=== PATIENT | female | born 1975 | race Caucasian/White ===

== ENCOUNTER 2020-07-09 10:30 | Inpatient (IN) | payer OTHER ==
[2020-07-09 12:41] VITALS: BMI 19.0
[2020-07-09] MEDS ORDERED: NALOXONE HCL 0.4 MG/ML VIAL IM PRN (16:14)
[2020-07-09] MEDS ORDERED: IBUPROFEN 400 MG TABLET (FP) PO PRN (16:14)
[2020-07-09] MEDS ORDERED: guaiFENesin 200 MG/10 ML 10 ML UNIT-DOSE CUPS PO PRN (16:14)
[2020-07-09] MEDS ORDERED: P-EPHED 60MG/TRIPROLIDI 2.5MG TABLET PO PRN (16:14)
[2020-07-09] MEDS ORDERED: NICOTINE POLACRILEX 2 MG GUM BC PRN (16:14)
[2020-07-09] MEDS ORDERED: MAGNESIUM HYDROX 2400MG/30ML ORAL SUSPENSION 30 ML CUP PO PRN (16:14)
[2020-07-09] MEDS ORDERED: ACETAMINOPHEN 325 MG TABLET (FP) PO PRN (16:14)
[2020-07-09] MEDS ORDERED: MAGNESIUM CITRATE 300 ML BOTTLE PO PRN (16:14)
[2020-07-09] MEDS ORDERED: LOPERAMIDE HCL 2 MG CAPSULE PO PRN (16:14)
[2020-07-09] MEDS ORDERED: MAG HYDROX/AL HYDROX/SIMETH 30 ML UNIT-DOSE CUP PO PRN (16:14)
[2020-07-09] MEDS ORDERED: METHADONE HCL 10 MG TABLET PO ONE (17:15)
[2020-07-09] MEDS ORDERED: METHADONE 40 MG, METHADONE 30 MG PO ONE (17:30)
[2020-07-09] MEDS ORDERED: METHADONE HCL 10 MG TABLET ONE (17:53)
[2020-07-09] MEDS ORDERED: METHADONE HCL 40 MG DISPERSABLE TABLET ONE (17:54)
[2020-07-09] MEDS ORDERED: TUBERCULIN PPD 5 TU/0.1ML VIAL ID ONE (17:54)
[2020-07-09] MEDS: PRENATAL VITAMINS W/ FOLIC ACID TABLET (FP) PO SCH (17:59)
[2020-07-09] MEDS: NICOTINE 14 MG/24 HOURS TOPICAL PATCH TD SCH (18:02)
[2020-07-09] MEDS: hydrOXYzine PAMOATE 25 MG CAPSULE (FP) PO SCH ×2 (19:47→23:22)
[2020-07-09] MEDS: THIAMINE HCL 100 MG TABLET (FP) PO SCH (23:22)
[2020-07-09] MEDS: MELATONIN 5 MG TABLETS PO SCH (23:22)
[2020-07-10] MEDS: hydrOXYzine PAMOATE 25 MG CAPSULE (FP) PO SCH ×5 (06:26→21:09)
[2020-07-10] MEDS: METHADONE HCL 40 MG DISPERSABLE TABLET PO SCH (06:26)
[2020-07-10 10:18] LABS: HEMATOCRIT 35.5 % (32.4-45.2); HEMOGLOBIN 12.5 GM/dL (10.7-15.3); MCH 30.4 pg (25.7-33.7); MCHC 35.1 g/dl (32.0-36.0); MEAN CELL VOLUME 86.8 fl (80-96); MEAN PLT VOLUME 9.5 fl (7.5-11.1); PLATELET COUNT 160 K/MM3 (134-434); RBC 4.09 M/mm3 (3.60-5.2); RDW 13.3 % (11.6-15.6); WHITE BLOOD COUNT 3.7 K/mm3 (4.0-10.0)
[2020-07-10 10:22] LABS: ALBUMIN 3.7 g/dl (3.4-5.0); BLOOD UREA NITROGEN 19.6 mg/dL (7-18); CALCIUM 9.6 mg/dL (8.5-10.1)
[2020-07-10 10:26] LABS: BILIRUBIN,TOTAL 0.3 mg/dL (0.2-1); CREATININE 0.9 mg/dL (0.55-1.3)
[2020-07-10 10:28] LABS: TOT PROT 7.8 g/dl (6.4-8.2)
[2020-07-10] MEDS: NICOTINE 14 MG/24 HOURS TOPICAL PATCH TD SCH (10:44)
[2020-07-10] MEDS: PRENATAL VITAMINS W/ FOLIC ACID TABLET (FP) PO SCH (10:44)
[2020-07-10] MEDS: BACITRACIN 0.9 GM PACKET TP SCH ×2 (13:15→21:09)
[2020-07-10] MEDS: THIAMINE HCL 100 MG TABLET (FP) PO SCH (21:09)
[2020-07-10] MEDS: MELATONIN 5 MG TABLETS PO SCH (21:10)
[2020-07-11] MEDS: METHADONE HCL 40 MG DISPERSABLE TABLET PO SCH (06:25)
[2020-07-11] MEDS: hydrOXYzine PAMOATE 25 MG CAPSULE (FP) PO SCH ×5 (06:25→21:30)
[2020-07-11] MEDS: PRENATAL VITAMINS W/ FOLIC ACID TABLET (FP) PO SCH (09:41)
[2020-07-11] MEDS: BACITRACIN 0.9 GM PACKET TP SCH ×2 (09:41→21:30)
[2020-07-11] MEDS: NICOTINE 14 MG/24 HOURS TOPICAL PATCH TD SCH (09:41)
[2020-07-11] MEDS: MELATONIN 5 MG TABLETS PO SCH (21:29)
[2020-07-11] MEDS: THIAMINE HCL 100 MG TABLET (FP) PO SCH (21:30)
[2020-07-12] MEDS: METHADONE HCL 40 MG DISPERSABLE TABLET PO SCH (06:16)
[2020-07-12] MEDS: hydrOXYzine PAMOATE 25 MG CAPSULE (FP) PO SCH ×5 (06:17→21:21)
[2020-07-12] MEDS: NICOTINE 14 MG/24 HOURS TOPICAL PATCH TD SCH (09:36)
[2020-07-12] MEDS: PRENATAL VITAMINS W/ FOLIC ACID TABLET (FP) PO SCH (09:36)
[2020-07-12] MEDS: BACITRACIN 0.9 GM PACKET TP SCH ×2 (09:37→21:21)
[2020-07-12 19:50] LABS: EPI CELLS 6 /uL (0-25.1); HYALINE CASTS 0 /uL (0-3.1); URINE APPEARANCE CLEAR; URINE BACTERIA 119 /uL (0-1359); URINE BILIRUBIN NEGATIVE (NEGATIVE); URINE COLOR YELLOW; URINE GLUCOSE (UA) NEGATIVE (NEGATIVE); URINE KETONE NEGATIVE (NEGATIVE); URINE LEUK ESTERASE NEGATIVE (NEGATIVE); URINE NITRITE NEGATIVE (NEGATIVE); URINE PROTEIN NEGATIVE (NEGATIVE); URINE RBC 65 /uL (0-23.9); URINE UROBILINOGEN 0.2 mg/dL (0.2-1.0); URINE WBC 7 /uL (0-25.8)
[2020-07-12] MEDS: MELATONIN 5 MG TABLETS PO SCH (21:21)
[2020-07-12] MEDS: THIAMINE HCL 100 MG TABLET (FP) PO SCH (21:22)
[2020-07-13] MEDS: METHADONE HCL 40 MG DISPERSABLE TABLET PO SCH (06:12)
[2020-07-13] MEDS: hydrOXYzine PAMOATE 25 MG CAPSULE (FP) PO SCH ×5 (06:12→21:44)
[2020-07-13 10:06] LABS: SARS-CoV-2 NAA Not Detected (Not Detected)
[2020-07-13] MEDS: BACITRACIN 0.9 GM PACKET TP SCH ×2 (10:08→21:44)
[2020-07-13] MEDS: NICOTINE 14 MG/24 HOURS TOPICAL PATCH TD SCH (10:09)
[2020-07-13] MEDS: PRENATAL VITAMINS W/ FOLIC ACID TABLET (FP) PO SCH (10:09)
[2020-07-13] MEDS: MELATONIN 5 MG TABLETS PO SCH (21:44)
[2020-07-13] MEDS: THIAMINE HCL 100 MG TABLET (FP) PO SCH (21:44)
[2020-07-14] MEDS: hydrOXYzine PAMOATE 25 MG CAPSULE (FP) PO SCH ×5 (06:05→21:33)
[2020-07-14] MEDS: METHADONE HCL 40 MG DISPERSABLE TABLET PO SCH (06:05)
[2020-07-14] MEDS: BACITRACIN 0.9 GM PACKET TP SCH ×2 (10:07→21:33)
[2020-07-14] MEDS: NICOTINE 14 MG/24 HOURS TOPICAL PATCH TD SCH (10:07)
[2020-07-14] MEDS: PRENATAL VITAMINS W/ FOLIC ACID TABLET (FP) PO SCH (10:07)
[2020-07-14] MEDS: MELATONIN 5 MG TABLETS PO SCH (21:33)
[2020-07-14] MEDS: THIAMINE HCL 100 MG TABLET (FP) PO SCH (21:33)
[2020-07-15] MEDS: METHADONE HCL 40 MG DISPERSABLE TABLET PO SCH (06:17)
[2020-07-15] MEDS: hydrOXYzine PAMOATE 25 MG CAPSULE (FP) PO SCH ×5 (06:17→21:36)
[2020-07-15] MEDS: NICOTINE 14 MG/24 HOURS TOPICAL PATCH TD SCH (09:59)
[2020-07-15] MEDS: BACITRACIN 0.9 GM PACKET TP SCH ×2 (09:59→21:36)
[2020-07-15] MEDS: PRENATAL VITAMINS W/ FOLIC ACID TABLET (FP) PO SCH (09:59)
[2020-07-15] MEDS: MELATONIN 5 MG TABLETS PO SCH (21:35)
[2020-07-15] MEDS: THIAMINE HCL 100 MG TABLET (FP) PO SCH (21:36)
[2020-07-16] MEDS: hydrOXYzine PAMOATE 25 MG CAPSULE (FP) PO SCH ×3 (06:29→13:13)
[2020-07-16] MEDS: METHADONE HCL 40 MG DISPERSABLE TABLET PO SCH (06:29)
[2020-07-16] MEDS: BACITRACIN 0.9 GM PACKET TP SCH ×2 (09:53→21:32)
[2020-07-16] MEDS: PRENATAL VITAMINS W/ FOLIC ACID TABLET (FP) PO SCH (09:53)
[2020-07-16] MEDS: NICOTINE 14 MG/24 HOURS TOPICAL PATCH TD SCH (09:53)
[2020-07-16] MEDS: MELATONIN 5 MG TABLETS PO SCH (21:32)
[2020-07-16] MEDS: hydrOXYzine PAMOATE 25 MG CAPSULE (FP) PO PRN (21:32)
[2020-07-16] MEDS: THIAMINE HCL 100 MG TABLET (FP) PO SCH (21:32)
[2020-07-17] MEDS: hydrOXYzine PAMOATE 25 MG CAPSULE (FP) PO PRN ×2 (06:06→21:30)
[2020-07-17] MEDS: METHADONE HCL 40 MG DISPERSABLE TABLET PO SCH (06:06)
[2020-07-17] MEDS: BACITRACIN 0.9 GM PACKET TP SCH ×2 (09:49→21:29)
[2020-07-17] MEDS: PRENATAL VITAMINS W/ FOLIC ACID TABLET (FP) PO SCH (09:50)
[2020-07-17] MEDS: NICOTINE 14 MG/24 HOURS TOPICAL PATCH TD SCH (09:50)
[2020-07-17] MEDS: MELATONIN 5 MG TABLETS PO SCH (21:29)
[2020-07-17] MEDS: THIAMINE HCL 100 MG TABLET (FP) PO SCH (21:29)
[2020-07-18] MEDS: METHADONE HCL 40 MG DISPERSABLE TABLET PO SCH (06:24)
[2020-07-18] MEDS: hydrOXYzine PAMOATE 25 MG CAPSULE (FP) PO PRN ×3 (06:25→21:33)
[2020-07-18] MEDS: BACITRACIN 0.9 GM PACKET TP SCH ×2 (09:46→21:33)
[2020-07-18] MEDS: NICOTINE 14 MG/24 HOURS TOPICAL PATCH TD SCH (09:46)
[2020-07-18] MEDS: PRENATAL VITAMINS W/ FOLIC ACID TABLET (FP) PO SCH (09:46)
[2020-07-18] MEDS: MELATONIN 5 MG TABLETS PO SCH (21:32)
[2020-07-18] MEDS: THIAMINE HCL 100 MG TABLET (FP) PO SCH (21:33)
[2020-07-19] MEDS: METHADONE HCL 40 MG DISPERSABLE TABLET PO SCH (06:22)
[2020-07-19] MEDS: hydrOXYzine PAMOATE 25 MG CAPSULE (FP) PO PRN ×3 (06:23→21:18)
[2020-07-19] MEDS: PRENATAL VITAMINS W/ FOLIC ACID TABLET (FP) PO SCH (10:08)
[2020-07-19] MEDS: NICOTINE 14 MG/24 HOURS TOPICAL PATCH TD SCH (10:08)
[2020-07-19] MEDS: BACITRACIN 0.9 GM PACKET TP SCH ×2 (10:08→21:19)
[2020-07-19] MEDS: THIAMINE HCL 100 MG TABLET (FP) PO SCH (21:18)
[2020-07-19] MEDS: MELATONIN 5 MG TABLETS PO SCH (21:19)
[2020-07-20] MEDS: hydrOXYzine PAMOATE 25 MG CAPSULE (FP) PO PRN ×3 (07:28→21:24)
[2020-07-20] MEDS: METHADONE HCL 40 MG DISPERSABLE TABLET PO SCH (07:28)
[2020-07-20] MEDS: PRENATAL VITAMINS W/ FOLIC ACID TABLET (FP) PO SCH (10:31)
[2020-07-20] MEDS: BACITRACIN 0.9 GM PACKET TP SCH ×2 (10:32→21:24)
[2020-07-20] MEDS: NICOTINE 14 MG/24 HOURS TOPICAL PATCH TD SCH (10:32)
[2020-07-20] MEDS: THIAMINE HCL 100 MG TABLET (FP) PO SCH (21:24)
[2020-07-20] MEDS: MELATONIN 5 MG TABLETS PO SCH (21:24)
[2020-07-21] MEDS: hydrOXYzine PAMOATE 25 MG CAPSULE (FP) PO PRN ×3 (06:18→22:14)
[2020-07-21] MEDS: METHADONE HCL 40 MG DISPERSABLE TABLET PO SCH (06:19)
[2020-07-21] MEDS: BACITRACIN 0.9 GM PACKET TP SCH ×2 (10:19→22:15)
[2020-07-21] MEDS: NICOTINE 14 MG/24 HOURS TOPICAL PATCH TD SCH (10:19)
[2020-07-21] MEDS: PRENATAL VITAMINS W/ FOLIC ACID TABLET (FP) PO SCH (10:19)
[2020-07-21] MEDS: THIAMINE HCL 100 MG TABLET (FP) PO SCH (22:13)
[2020-07-21] MEDS: MELATONIN 5 MG TABLETS PO SCH (22:13)
[2020-07-22] MEDS: METHADONE HCL 40 MG DISPERSABLE TABLET PO SCH (06:23)
[2020-07-22] MEDS: hydrOXYzine PAMOATE 25 MG CAPSULE (FP) PO PRN ×4 (06:24→21:22)
[2020-07-22] MEDS: BACITRACIN 0.9 GM PACKET TP SCH ×2 (10:35→21:23)
[2020-07-22] MEDS: PRENATAL VITAMINS W/ FOLIC ACID TABLET (FP) PO SCH (10:35)
[2020-07-22] MEDS: NICOTINE 14 MG/24 HOURS TOPICAL PATCH TD SCH (10:35)
[2020-07-22] MEDS: THIAMINE HCL 100 MG TABLET (FP) PO SCH (21:22)
[2020-07-22] MEDS: MELATONIN 5 MG TABLETS PO SCH (21:22)
[2020-07-23] MEDS: hydrOXYzine PAMOATE 25 MG CAPSULE (FP) PO PRN ×4 (06:11→21:59)
[2020-07-23] MEDS: METHADONE HCL 40 MG DISPERSABLE TABLET PO SCH (06:11)
[2020-07-23] MEDS: PRENATAL VITAMINS W/ FOLIC ACID TABLET (FP) PO SCH (10:21)
[2020-07-23] MEDS: BACITRACIN 0.9 GM PACKET TP SCH ×2 (10:22→21:59)
[2020-07-23] MEDS: NICOTINE 14 MG/24 HOURS TOPICAL PATCH TD SCH (10:22)
[2020-07-23] MEDS: THIAMINE HCL 100 MG TABLET (FP) PO SCH (21:59)
[2020-07-23] MEDS: MELATONIN 5 MG TABLETS PO SCH (21:59)
[2020-07-24] MEDS: METHADONE HCL 40 MG DISPERSABLE TABLET PO SCH (06:07)
[2020-07-24] MEDS: hydrOXYzine PAMOATE 25 MG CAPSULE (FP) PO PRN ×3 (06:07→21:42)
[2020-07-24] MEDS: PRENATAL VITAMINS W/ FOLIC ACID TABLET (FP) PO SCH (10:10)
[2020-07-24] MEDS: BACITRACIN 0.9 GM PACKET TP SCH ×2 (10:11→22:01)
[2020-07-24] MEDS: NICOTINE 14 MG/24 HOURS TOPICAL PATCH TD SCH (10:11)
[2020-07-24] MEDS: MELATONIN 5 MG TABLETS PO SCH (21:42)
[2020-07-24] MEDS: THIAMINE HCL 100 MG TABLET (FP) PO SCH (21:42)
[2020-07-25] MEDS: hydrOXYzine PAMOATE 25 MG CAPSULE (FP) PO PRN ×3 (06:05→21:31)
[2020-07-25] MEDS: METHADONE HCL 40 MG DISPERSABLE TABLET PO SCH (06:05)
[2020-07-25] MEDS: BACITRACIN 0.9 GM PACKET TP SCH ×2 (09:50→21:31)
[2020-07-25] MEDS: PRENATAL VITAMINS W/ FOLIC ACID TABLET (FP) PO SCH (09:50)
[2020-07-25] MEDS: NICOTINE 14 MG/24 HOURS TOPICAL PATCH TD SCH (09:51)
[2020-07-25] MEDS: THIAMINE HCL 100 MG TABLET (FP) PO SCH (21:31)
[2020-07-25] MEDS: MELATONIN 5 MG TABLETS PO SCH (21:31)
[2020-07-25] MEDS ORDERED: PT OWN MED DRAWER 7, Y5N ONE (21:55)
[2020-07-26] MEDS: hydrOXYzine PAMOATE 25 MG CAPSULE (FP) PO PRN ×3 (06:11→21:25)
[2020-07-26] MEDS: METHADONE HCL 40 MG DISPERSABLE TABLET PO SCH (06:11)
[2020-07-26] MEDS: PRENATAL VITAMINS W/ FOLIC ACID TABLET (FP) PO SCH (10:00)
[2020-07-26] MEDS: NICOTINE 14 MG/24 HOURS TOPICAL PATCH TD SCH (10:00)
[2020-07-26] MEDS: BACITRACIN 0.9 GM PACKET TP SCH ×2 (10:00→21:25)
[2020-07-26] MEDS: THIAMINE HCL 100 MG TABLET (FP) PO SCH (21:25)
[2020-07-26] MEDS: MELATONIN 5 MG TABLETS PO SCH (21:25)
[2020-07-27] MEDS: METHADONE HCL 40 MG DISPERSABLE TABLET PO SCH (06:17)
[2020-07-27] MEDS: NICOTINE 14 MG/24 HOURS TOPICAL PATCH TD SCH (10:03)
[2020-07-27] MEDS: PRENATAL VITAMINS W/ FOLIC ACID TABLET (FP) PO SCH (10:03)
[2020-07-27] MEDS: hydrOXYzine PAMOATE 25 MG CAPSULE (FP) PO PRN ×3 (10:03→21:28)
[2020-07-27] MEDS: BACITRACIN 0.9 GM PACKET TP SCH ×2 (10:03→21:31)
[2020-07-27] MEDS: MELATONIN 5 MG TABLETS PO SCH (21:28)
[2020-07-27] MEDS: THIAMINE HCL 100 MG TABLET (FP) PO SCH (21:28)
[2020-07-28] MEDS: METHADONE HCL 40 MG DISPERSABLE TABLET PO SCH (06:24)
[2020-07-28] MEDS: hydrOXYzine PAMOATE 25 MG CAPSULE (FP) PO PRN ×2 (06:24→10:00)
[2020-07-28 07:19] VITALS: BP 115/65; PULSE 51; TEMP 97.6
[2020-07-28] MEDS: PRENATAL VITAMINS W/ FOLIC ACID TABLET (FP) PO SCH (10:00)
[2020-07-28] MEDS: BACITRACIN 0.9 GM PACKET TP SCH (10:00)
[2020-07-28] MEDS: NICOTINE 14 MG/24 HOURS TOPICAL PATCH TD SCH (10:00)
== END 2020-07-28 10:15 | disposition home or self-care (01) | DRG 772 ==
LOC: YASAS 10:30 → Y3N 15:53 → Y5N 16:26
PROVIDERS: ADMIT Allergy & Immunology; ATTEND Allergy & Immunology
PROC: HZ42ZZZ Group Counseling for Substance Abuse Treatment, Cognitive-Behavioral (ICD-10-PCS; principal; 2020-07-09)
DX: F10.20 Alcohol dependence, uncomplicated (principal); F11.20 Opioid dependence, uncomplicated; F14.20 Cocaine dependence, uncomplicated; F17.210 Nicotine dependence, cigarettes, uncomplicated
CPT/HCPCS: 36415; 80053; 81003; 81025; 85027; 86780; 93005; 93010; C9803; U0003; U0005

== ENCOUNTER 2020-11-11 12:16 | Inpatient (IN) | payer OTHER ==
[2020-11-11 12:54] VITALS: BMI 20.8
[2020-11-11] MEDS ORDERED: MENTHOL/PHENOL 1 EACH UD MM PRN (13:55)
[2020-11-11] MEDS ORDERED: IBUPROFEN 400 MG TABLET (FP) PO PRN (13:55)
[2020-11-11] MEDS ORDERED: MAG HYDROX/AL HYDROX/SIMETH 30 ML UNIT-DOSE CUP PO PRN (13:55)
[2020-11-11] MEDS ORDERED: ACETAMINOPHEN 325 MG TABLET (FP) PO PRN ×2 (13:55)
[2020-11-11] MEDS ORDERED: METHOCARBAMOL 500 MG TABLET PO PRN (13:55)
[2020-11-11] MEDS ORDERED: MAGNESIUM HYDROX 2400MG/30ML ORAL SUSPENSION 30 ML CUP PO PRN (13:55)
[2020-11-11] MEDS ORDERED: NICOTINE 10 MG CARTRIDGE (INHALER) IH PRN (13:55)
[2020-11-11] MEDS ORDERED: MAGNESIUM CITRATE 300 ML BOTTLE PO PRN (13:55)
[2020-11-11] MEDS ORDERED: ONDANSETRON *ODT* 4 MG TABLET SL PRN (13:55)
[2020-11-11] MEDS ORDERED: BISMUTH SUBSALICYLATE 262 MG/15 ML BTL PO PRN (13:55)
[2020-11-11] MEDS: hydrOXYzine PAMOATE 25 MG CAPSULE (FP) PO SCH ×3 (15:40→22:51)
[2020-11-11] MEDS: PRENATAL VITAMINS W/ FOLIC ACID TABLET (FP) PO SCH (15:40)
[2020-11-11 15:52] LABS: HEMATOCRIT 37.1 % (32.4-45.2); HEMOGLOBIN 12.8 GM/dL (10.7-15.3); MCH 31.5 pg (25.7-33.7); MCHC 34.4 g/dl (32.0-36.0); MEAN CELL VOLUME 91.5 fl (80-96); MEAN PLT VOLUME 8.7 fl (7.5-11.1); PLATELET COUNT 183 10^3/uL (134-434); RBC 4.06 M/mm3 (3.60-5.2); RDW 14.3 % (11.6-15.6); WHITE BLOOD COUNT 3.3 K/mm3 (4.0-10.0)
[2020-11-11 16:02] LABS: ALBUMIN 3.9 g/dl (3.4-5.0); BLOOD UREA NITROGEN 19.4 mg/dL (7-18); CALCIUM 8.6 mg/dL (8.5-10.1)
[2020-11-11 16:06] LABS: BILIRUBIN,TOTAL 0.4 mg/dL (0.2-1); TOT PROT 7.7 g/dl (6.4-8.2)
[2020-11-11] MEDS ORDERED: MELATONIN 5 MG TABLETS PO SCH (22:00)
[2020-11-11] MEDS ORDERED: THIAMINE HCL 100 MG TABLET (FP) PO SCH (22:00)
[2020-11-12] MEDS ORDERED: methaDONE HCL 40 MG DISPERSABLE TABLET PO SCH (06:00)
[2020-11-12] MEDS: hydrOXYzine PAMOATE 25 MG CAPSULE (FP) PO SCH (06:12)
[2020-11-12 08:48] VITALS: BP 108/63; PULSE 50; TEMP 96.9
[2020-11-12] MEDS ORDERED: hydrOXYzine PAMOATE 25 MG CAPSULE (FP) PO PRN (09:16)
[2020-11-12] MEDS: PRENATAL VITAMINS W/ FOLIC ACID TABLET (FP) PO SCH (10:30)
== END 2020-11-12 12:07 | disposition other institution (70) | DRG 773 ==
LOC: YASAS 12:16 → Y3N 14:01
PROVIDERS: ADMIT Allergy & Immunology; ATTEND Allergy & Immunology
PROC: HZ2ZZZZ Detoxification Services for Substance Abuse Treatment (ICD-10-PCS; principal; 2020-11-11)
DX: F10.230 Alcohol dependence with withdrawal, uncomplicated (principal); F11.20 Opioid dependence, uncomplicated; F14.20 Cocaine dependence, uncomplicated; F12.20 Cannabis dependence, uncomplicated; F17.210 Nicotine dependence, cigarettes, uncomplicated; F19.24 Other psychoactive substance dependence with psychoactive substance-induced mood disorder
CPT/HCPCS: 36415; 80053; 81025; 85027; 86780; C9803; U0003; U0005

== ENCOUNTER 2020-11-12 12:17 | Inpatient (IN) | payer OTHER ==
[2020-11-12] MEDS ORDERED: NICOTINE 10 MG CARTRIDGE (INHALER) IH PRN (13:25)
[2020-11-12] MEDS ORDERED: P-EPHED 60MG/TRIPROLIDI 2.5MG TABLET PO PRN (13:25)
[2020-11-12] MEDS ORDERED: MAG HYDROX/AL HYDROX/SIMETH 30 ML UNIT-DOSE CUP PO PRN (13:25)
[2020-11-12] MEDS ORDERED: ACETAMINOPHEN 325 MG TABLET (FP) PO PRN (13:25)
[2020-11-12] MEDS ORDERED: IBUPROFEN 400 MG TABLET (FP) PO PRN (13:25)
[2020-11-12] MEDS ORDERED: MENTHOL/PHENOL 1 EACH UD MM PRN (13:25)
[2020-11-12] MEDS ORDERED: LOPERAMIDE HCL 2 MG CAPSULE PO PRN (13:25)
[2020-11-12] MEDS ORDERED: guaiFENesin 200 MG/10 ML 10 ML UNIT-DOSE CUPS PO PRN (13:25)
[2020-11-12] MEDS ORDERED: MAGNESIUM CITRATE 300 ML BOTTLE PO PRN (13:25)
[2020-11-12] MEDS ORDERED: MAGNESIUM HYDROX 2400MG/30ML ORAL SUSPENSION 30 ML CUP PO PRN (13:25)
[2020-11-12] MEDS: THIAMINE HCL 100 MG TABLET (FP) PO SCH (21:15)
[2020-11-12] MEDS ORDERED: MELATONIN 5 MG TABLETS PO SCH (22:00)
[2020-11-13] MEDS: methaDONE HCL 40 MG DISPERSABLE TABLET PO SCH (06:19)
[2020-11-13] MEDS: PRENATAL VITAMINS W/ FOLIC ACID TABLET (FP) PO SCH (10:27)
[2020-11-13] MEDS: hydrOXYzine PAMOATE 25 MG CAPSULE (FP) PO PRN ×2 (18:16→21:39)
[2020-11-13] MEDS: SUVOREXANT 10 MG TABLET PO PRN (21:38)
[2020-11-13] MEDS: THIAMINE HCL 100 MG TABLET (FP) PO SCH (21:38)
[2020-11-14] MEDS: methaDONE HCL 40 MG DISPERSABLE TABLET PO SCH (06:37)
[2020-11-14] MEDS: hydrOXYzine PAMOATE 25 MG CAPSULE (FP) PO PRN ×3 (06:38→21:17)
[2020-11-14] MEDS: PRENATAL VITAMINS W/ FOLIC ACID TABLET (FP) PO SCH (09:51)
[2020-11-14] MEDS: SUVOREXANT 10 MG TABLET PO PRN (21:16)
[2020-11-14] MEDS: THIAMINE HCL 100 MG TABLET (FP) PO SCH (21:17)
[2020-11-15] MEDS: methaDONE HCL 40 MG DISPERSABLE TABLET PO SCH (06:14)
[2020-11-15] MEDS: hydrOXYzine PAMOATE 25 MG CAPSULE (FP) PO PRN ×3 (06:15→22:18)
[2020-11-15] MEDS: PRENATAL VITAMINS W/ FOLIC ACID TABLET (FP) PO SCH (10:00)
[2020-11-15] MEDS ORDERED: SUVOREXANT 10 MG TABLET PO PRN (22:00)
[2020-11-15] MEDS ORDERED: SUVOREXANT 15 MG TABLET PO PRN (22:08)
[2020-11-15] MEDS: THIAMINE HCL 100 MG TABLET (FP) PO SCH (22:18)
[2020-11-16] MEDS: methaDONE HCL 40 MG DISPERSABLE TABLET PO SCH (06:16)
[2020-11-16] MEDS: PRENATAL VITAMINS W/ FOLIC ACID TABLET (FP) PO SCH (09:48)
[2020-11-16] MEDS: hydrOXYzine PAMOATE 25 MG CAPSULE (FP) PO PRN ×2 (09:48→21:16)
[2020-11-16] MEDS: THIAMINE HCL 100 MG TABLET (FP) PO SCH (21:15)
[2020-11-16] MEDS: SUVOREXANT 20 MG TABLET PO PRN (21:16)
[2020-11-17] MEDS: methaDONE HCL 40 MG DISPERSABLE TABLET PO SCH (06:06)
[2020-11-17] MEDS: hydrOXYzine PAMOATE 25 MG CAPSULE (FP) PO PRN ×2 (09:57→21:24)
[2020-11-17] MEDS: PRENATAL VITAMINS W/ FOLIC ACID TABLET (FP) PO SCH (09:57)
[2020-11-17] MEDS: SUVOREXANT 20 MG TABLET PO PRN (21:24)
[2020-11-17] MEDS: THIAMINE HCL 100 MG TABLET (FP) PO SCH (21:24)
[2020-11-18] MEDS: methaDONE HCL 40 MG DISPERSABLE TABLET PO SCH (06:05)
[2020-11-18] MEDS: hydrOXYzine PAMOATE 25 MG CAPSULE (FP) PO PRN ×2 (10:21→21:22)
[2020-11-18] MEDS: PRENATAL VITAMINS W/ FOLIC ACID TABLET (FP) PO SCH (10:21)
[2020-11-18] MEDS: THIAMINE HCL 100 MG TABLET (FP) PO SCH (21:21)
[2020-11-18] MEDS: SUVOREXANT 10 MG TABLET PO PRN (21:21)
[2020-11-18] MEDS: traZODone HCL 100 MG TABLET (FP) PO SCH (21:22)
[2020-11-19] MEDS: methaDONE HCL 40 MG DISPERSABLE TABLET PO SCH (06:30)
[2020-11-19] MEDS: hydrOXYzine PAMOATE 25 MG CAPSULE (FP) PO PRN ×2 (10:00→21:50)
[2020-11-19] MEDS: PRENATAL VITAMINS W/ FOLIC ACID TABLET (FP) PO SCH (10:00)
[2020-11-19] MEDS: SUVOREXANT 10 MG TABLET PO PRN (21:49)
[2020-11-19] MEDS: THIAMINE HCL 100 MG TABLET (FP) PO SCH (21:49)
[2020-11-19] MEDS: traZODone HCL 100 MG TABLET (FP) PO SCH (21:49)
[2020-11-20] MEDS: methaDONE HCL 40 MG DISPERSABLE TABLET PO SCH (06:21)
[2020-11-20] MEDS: PRENATAL VITAMINS W/ FOLIC ACID TABLET (FP) PO SCH (10:08)
[2020-11-20] MEDS: hydrOXYzine PAMOATE 25 MG CAPSULE (FP) PO PRN ×2 (10:08→21:27)
[2020-11-20] MEDS: SUVOREXANT 10 MG TABLET PO PRN (21:26)
[2020-11-20] MEDS: traZODone HCL 100 MG TABLET (FP) PO SCH (21:27)
[2020-11-20] MEDS: THIAMINE HCL 100 MG TABLET (FP) PO SCH (21:27)
[2020-11-21] MEDS: methaDONE HCL 40 MG DISPERSABLE TABLET PO SCH (06:24)
[2020-11-21] MEDS: PRENATAL VITAMINS W/ FOLIC ACID TABLET (FP) PO SCH (10:00)
[2020-11-21] MEDS: hydrOXYzine PAMOATE 25 MG CAPSULE (FP) PO PRN ×2 (17:26→21:03)
[2020-11-21] MEDS: THIAMINE HCL 100 MG TABLET (FP) PO SCH (21:03)
[2020-11-21] MEDS: SUVOREXANT 10 MG TABLET PO PRN (21:03)
[2020-11-21] MEDS: traZODone HCL 100 MG TABLET (FP) PO SCH (21:03)
[2020-11-22] MEDS: methaDONE HCL 40 MG DISPERSABLE TABLET PO SCH (06:15)
[2020-11-22] MEDS: PRENATAL VITAMINS W/ FOLIC ACID TABLET (FP) PO SCH (09:14)
[2020-11-22] MEDS: hydrOXYzine PAMOATE 25 MG CAPSULE (FP) PO PRN (21:18)
[2020-11-22] MEDS: THIAMINE HCL 100 MG TABLET (FP) PO SCH (21:18)
[2020-11-22] MEDS: traZODone HCL 100 MG TABLET (FP) PO SCH (21:18)
[2020-11-23] MEDS: methaDONE HCL 40 MG DISPERSABLE TABLET PO SCH (06:20)
[2020-11-23] MEDS: PRENATAL VITAMINS W/ FOLIC ACID TABLET (FP) PO SCH (10:19)
[2020-11-23] MEDS: hydrOXYzine PAMOATE 25 MG CAPSULE (FP) PO PRN ×2 (10:19→21:22)
[2020-11-23] MEDS: traZODone HCL 100 MG TABLET (FP) PO SCH (21:21)
[2020-11-23] MEDS: THIAMINE HCL 100 MG TABLET (FP) PO SCH (21:21)
[2020-11-24] MEDS: methaDONE HCL 40 MG DISPERSABLE TABLET PO SCH (06:28)
[2020-11-24] MEDS: PRENATAL VITAMINS W/ FOLIC ACID TABLET (FP) PO SCH (10:18)
[2020-11-24] MEDS: hydrOXYzine PAMOATE 25 MG CAPSULE (FP) PO PRN ×3 (10:18→21:18)
[2020-11-24] MEDS: THIAMINE HCL 100 MG TABLET (FP) PO SCH (21:18)
[2020-11-24] MEDS: traZODone HCL 100 MG TABLET (FP) PO SCH (21:18)
[2020-11-25] MEDS: methaDONE HCL 40 MG DISPERSABLE TABLET PO SCH (06:26)
[2020-11-25] MEDS: PRENATAL VITAMINS W/ FOLIC ACID TABLET (FP) PO SCH (09:54)
[2020-11-25] MEDS: hydrOXYzine PAMOATE 25 MG CAPSULE (FP) PO PRN ×2 (09:54→21:23)
[2020-11-25] MEDS: traZODone HCL 100 MG TABLET (FP) PO SCH (21:23)
[2020-11-25] MEDS: THIAMINE HCL 100 MG TABLET (FP) PO SCH (21:23)
[2020-11-25] MEDS ORDERED: SUVOREXANT 10 MG TABLET PO PRN (22:00)
[2020-11-26] MEDS: methaDONE HCL 40 MG DISPERSABLE TABLET PO SCH (06:16)
[2020-11-26 07:04] VITALS: BP 112/56; PULSE 55; TEMP 97.5
[2020-11-26] MEDS: PRENATAL VITAMINS W/ FOLIC ACID TABLET (FP) PO SCH (09:06)
[2020-11-26] MEDS: hydrOXYzine PAMOATE 25 MG CAPSULE (FP) PO PRN (09:07)
== END 2020-11-26 10:00 | disposition home or self-care (01) | DRG 772 ==
LOC: YASAS 12:17 → Y3W 12:20
PROVIDERS: ADMIT Allergy & Immunology; ATTEND Allergy & Immunology
PROC: HZ42ZZZ Group Counseling for Substance Abuse Treatment, Cognitive-Behavioral (ICD-10-PCS; principal; 2020-11-12)
DX: F14.20 Cocaine dependence, uncomplicated (principal); F11.20 Opioid dependence, uncomplicated; F10.20 Alcohol dependence, uncomplicated; F12.10 Cannabis abuse, uncomplicated; F17.210 Nicotine dependence, cigarettes, uncomplicated; F19.282 Other psychoactive substance dependence with psychoactive substance-induced sleep disorder

== ENCOUNTER 2022-08-09 17:22 | Inpatient (IN) | payer OTHER ==
[2022-08-09 17:51] VITALS: BMI 20.1
[2022-08-09] MEDS ORDERED: IBUPROFEN 600 MG TABLET (FP) PO PRN (20:17)
[2022-08-09] MEDS ORDERED: MAGNESIUM HYDROX 2400MG/30ML ORAL SUSPENSION 30 ML CUP PO PRN (20:17)
[2022-08-09] MEDS ORDERED: IBUPROFEN 400 MG TABLET (FP) PO PRN (20:17)
[2022-08-09] MEDS ORDERED: NALOXONE HCL (KLOXXADO) 8 MG SPRAY NS PRN (20:17)
[2022-08-09] MEDS ORDERED: COLLOIDAL OATMEAL 1 BAR EACH TP PRN (20:17)
[2022-08-09] MEDS ORDERED: NALOXONE HCL 0.4 MG/ML VIAL IM PRN (20:17)
[2022-08-09] MEDS ORDERED: LOPERAMIDE HCL 2 MG CAPSULE PO PRN (20:17)
[2022-08-09] MEDS ORDERED: AMMONIUM LACTATE 12% LOTION 225 GM BOTTLE TP PRN (20:17)
[2022-08-09] MEDS ORDERED: BENZOCAINE/MENTHOL (CHLORASEPTIC ) LOZENGE MM PRN (20:17)
[2022-08-09] MEDS ORDERED: guaiFENesin 600 MG TABLET.ER (FP) PO PRN (20:17)
[2022-08-09] MEDS ORDERED: POLYETHYLENE GLYCOL (HEALTHYLAX) 3350 17 GM PACKET PO PRN (20:17)
[2022-08-09] MEDS ORDERED: ACETAMINOPHEN 325 MG TABLET (FP) PO PRN (20:17)
[2022-08-09] MEDS ORDERED: P-EPHED 60MG/TRIPROLIDI 2.5MG TABLET PO PRN (20:17)
[2022-08-09] MEDS ORDERED: MAG HYDROX/AL HYDROX/SIMETH 30 ML UNIT-DOSE CUP PO PRN (20:17)
[2022-08-09] MEDS ORDERED: TUBERCULIN PPD 5 TU/0.1ML SYRINGE (IN PATIENT USE ONLY) ID ONE (20:17)
[2022-08-09] MEDS ORDERED: BENZONATATE 200 MG CAPSULE PO PRN (20:17)
[2022-08-10] MEDS ORDERED: TUBERCULIN PPD 5 TU/0.1ML VIAL ID ONE (02:21)
[2022-08-10] MEDS: MELATONIN 5 MG TABLETS PO SCH ×2 (06:21→21:46)
[2022-08-10] MEDS: THIAMINE HCL 100 MG TABLET (FP) PO SCH ×2 (06:21→21:46)
[2022-08-10] MEDS ORDERED: methaDONE HCL 10 MG TABLET PO SCH (09:00)
[2022-08-10] MEDS: PRENATAL VITAMINS W/ FOLIC ACID TABLET (FP) PO SCH (10:31)
[2022-08-10 17:44] LABS: EPI CELLS >36 /uL (0-25.1); HYALINE CASTS 18 /uL (0-3.1); PH,URINE 5.5 (5.0-8.0); URINE APPEARANCE CLEAR; URINE BACTERIA 624 /uL (0-1359); URINE BILIRUBIN NEGATIVE (NEGATIVE); URINE COLOR DK YELLOW; URINE GLUCOSE (UA) NEGATIVE (NEGATIVE); URINE KETONE NEGATIVE (NEGATIVE); URINE LEUK ESTERASE 1+ (NEGATIVE); URINE NITRITE NEGATIVE (NEGATIVE); URINE PROTEIN 1+ (NEGATIVE); URINE RBC 25 /uL (0-23.9); URINE WBC 86 /uL (0-25.8)
[2022-08-11] MEDS: PRENATAL VITAMINS W/ FOLIC ACID TABLET (FP) PO SCH (09:55)
[2022-08-11] MEDS: THIAMINE HCL 100 MG TABLET (FP) PO SCH (21:13)
[2022-08-11] MEDS: MELATONIN 5 MG TABLETS PO SCH (21:13)
[2022-08-12] MEDS: PRENATAL VITAMINS W/ FOLIC ACID TABLET (FP) PO SCH (09:42)
[2022-08-12] MEDS: MELATONIN 5 MG TABLETS PO SCH (21:11)
[2022-08-12] MEDS: THIAMINE HCL 100 MG TABLET (FP) PO SCH (21:12)
[2022-08-13] MEDS: PRENATAL VITAMINS W/ FOLIC ACID TABLET (FP) PO SCH (09:40)
[2022-08-13] MEDS: THIAMINE HCL 100 MG TABLET (FP) PO SCH (21:13)
[2022-08-13] MEDS: MELATONIN 5 MG TABLETS PO SCH (21:13)
[2022-08-14] MEDS: PRENATAL VITAMINS W/ FOLIC ACID TABLET (FP) PO SCH (09:44)
[2022-08-14] MEDS: MELATONIN 5 MG TABLETS PO SCH (21:26)
[2022-08-14] MEDS: THIAMINE HCL 100 MG TABLET (FP) PO SCH (21:26)
[2022-08-15] MEDS: PRENATAL VITAMINS W/ FOLIC ACID TABLET (FP) PO SCH (10:11)
[2022-08-15] MEDS: THIAMINE HCL 100 MG TABLET (FP) PO SCH (22:34)
[2022-08-15] MEDS: MELATONIN 5 MG TABLETS PO SCH (22:34)
[2022-08-16] MEDS: PRENATAL VITAMINS W/ FOLIC ACID TABLET (FP) PO SCH (09:47)
[2022-08-16] MEDS: MELATONIN 5 MG TABLETS PO SCH (21:38)
[2022-08-16] MEDS: THIAMINE HCL 100 MG TABLET (FP) PO SCH (21:38)
[2022-08-17] MEDS: PRENATAL VITAMINS W/ FOLIC ACID TABLET (FP) PO SCH (10:26)
[2022-08-17] MEDS: MELATONIN 5 MG TABLETS PO SCH (21:54)
[2022-08-17] MEDS: THIAMINE HCL 100 MG TABLET (FP) PO SCH (21:54)
[2022-08-18 07:03] VITALS: BP 140/61; PULSE 46; RESP 16; TEMP 97
== END 2022-08-18 09:45 | disposition home or self-care (01) | DRG 772 ==
LOC: YASAS 17:22 → Y5N 23:43
PROVIDERS: ADMIT Allergy & Immunology; ATTEND Psychiatry & Neurology Pain Medicine
PROC: HZ42ZZZ Group Counseling for Substance Abuse Treatment, Cognitive-Behavioral (ICD-10-PCS; principal; 2022-08-09)
DX: F11.20 Opioid dependence, uncomplicated (principal); F10.20 Alcohol dependence, uncomplicated; F14.20 Cocaine dependence, uncomplicated; F12.20 Cannabis dependence, uncomplicated; F17.210 Nicotine dependence, cigarettes, uncomplicated; F31.9 Bipolar disorder, unspecified; R00.1 Bradycardia, unspecified
CPT/HCPCS: 81003; 81025; 93005; 93010; C9803-CS; U0003; U0005

== ENCOUNTER 2022-09-23 16:21 | Inpatient (IN) | payer OTHER ==
[2022-09-23 17:56] VITALS: BMI 19.7
[2022-09-23] MEDS ORDERED: IBUPROFEN 400 MG TABLET (FP) PO PRN (21:18)
[2022-09-23] MEDS ORDERED: BENZOCAINE/MENTHOL (CHLORASEPTIC ) LOZENGE MM PRN (21:18)
[2022-09-23] MEDS ORDERED: MAG HYDROX/AL HYDROX/SIMETH 30 ML UNIT-DOSE CUP PO PRN (21:18)
[2022-09-23] MEDS ORDERED: hydrOXYzine PAMOATE 25 MG CAPSULE (FP) PO PRN (21:18)
[2022-09-23] MEDS ORDERED: guaiFENesin 600 MG TABLET.ER (FP) PO PRN (21:18)
[2022-09-23] MEDS ORDERED: AMMONIUM LACTATE 12% LOTION 225 GM BOTTLE TP PRN (21:18)
[2022-09-23] MEDS ORDERED: BENZONATATE 200 MG CAPSULE PO PRN (21:18)
[2022-09-23] MEDS ORDERED: MAGNESIUM HYDROX 2400MG/30ML ORAL SUSPENSION 30 ML CUP PO PRN (21:18)
[2022-09-23] MEDS ORDERED: NALOXONE HCL (KLOXXADO) 8 MG SPRAY NS PRN (21:18)
[2022-09-23] MEDS ORDERED: COLLOIDAL OATMEAL 1 BAR EACH TP PRN (21:18)
[2022-09-23] MEDS ORDERED: POLYETHYLENE GLYCOL (HEALTHYLAX) 3350 17 GM PACKET PO PRN (21:18)
[2022-09-23] MEDS ORDERED: LOPERAMIDE HCL 2 MG CAPSULE PO PRN (21:18)
[2022-09-23] MEDS ORDERED: ACETAMINOPHEN 325 MG TABLET (FP) PO PRN (21:18)
[2022-09-23] MEDS ORDERED: NICOTINE 10 MG CARTRIDGE (INHALER) IH PRN (21:18)
[2022-09-23] MEDS ORDERED: NALOXONE HCL 0.4 MG/ML VIAL IM PRN (21:18)
[2022-09-23] MEDS ORDERED: IBUPROFEN 600 MG TABLET (FP) PO PRN (21:18)
[2022-09-23] MEDS: THIAMINE HCL 100 MG TABLET (FP) PO SCH (22:58)
[2022-09-23] MEDS: MELATONIN 5 MG TABLETS PO SCH (22:58)
[2022-09-24] MEDS ORDERED: methaDONE HCL 10 MG TABLET PO ONE (09:25)
[2022-09-24] MEDS ORDERED: ZINC OXIDE/PANTHENOL/VITAMIN E 56 GM TUBE TP PRN (10:07)
[2022-09-24] MEDS: PRENATAL VITAMINS W/ FOLIC ACID TABLET (FP) PO SCH (10:11)
[2022-09-24] MEDS: NICOTINE 7 MG/24 HOURS TOPICAL PATCH TD SCH (10:14)
[2022-09-24 10:51] LABS: POTASSIUM 3.2 mmol/L (3.5-5.1)
[2022-09-24 10:59] LABS: HEMATOCRIT 34.3 % (32.4-45.2); HEMOGLOBIN 11.5 GM/dL (10.7-15.3); MCH 30.9 pg (25.7-33.7); MCHC 33.5 g/dl (32.0-36.0); MEAN CELL VOLUME 92.2 fl (80-96); MEAN PLT VOLUME 9.4 fl (7.5-11.1); PLATELET COUNT 121 10^3/uL (134-434); RBC 3.72 M/mm3 (3.60-5.2)
[2022-09-24 11:02] LABS: CALCIUM 8.6 mg/dL (8.5-10.1)
[2022-09-24 11:03] LABS: ALBUMIN 3.1 g/dl (3.4-5.0); BLOOD UREA NITROGEN 12.1 mg/dL (7-18)
[2022-09-24 11:04] LABS: PH,URINE 6.5 (5.0-8.0); URINE APPEARANCE CLEAR; URINE BILIRUBIN NEGATIVE (NEGATIVE); URINE COLOR YELLOW; URINE GLUCOSE (UA) NEGATIVE (NEGATIVE); URINE KETONE NEGATIVE (NEGATIVE); URINE LEUK ESTERASE NEGATIVE (NEGATIVE); URINE NITRITE NEGATIVE (NEGATIVE); URINE PROTEIN NEGATIVE (NEGATIVE); URINE UROBILINOGEN 0.2 mg/dL (0.2-1.0)
[2022-09-24 11:06] LABS: CREATININE 0.7 mg/dL (0.55-1.3)
[2022-09-24 11:08] LABS: BILIRUBIN,TOTAL 0.3 mg/dL (0.2-1); TOT PROT 6.7 g/dl (6.4-8.2)
[2022-09-24] MEDS: MELATONIN 5 MG TABLETS PO SCH (21:41)
[2022-09-24] MEDS: THIAMINE HCL 100 MG TABLET (FP) PO SCH (21:41)
[2022-09-25] MEDS ORDERED: methaDONE HCL 10 MG TABLET PO SCH (06:00)
[2022-09-25] MEDS: NICOTINE 7 MG/24 HOURS TOPICAL PATCH TD SCH (12:05)
[2022-09-25] MEDS: PRENATAL VITAMINS W/ FOLIC ACID TABLET (FP) PO SCH (12:05)
[2022-09-25] MEDS: THIAMINE HCL 100 MG TABLET (FP) PO SCH (21:50)
[2022-09-25] MEDS: MELATONIN 5 MG TABLETS PO SCH (21:50)
[2022-09-26] MEDS: PRENATAL VITAMINS W/ FOLIC ACID TABLET (FP) PO SCH (10:01)
[2022-09-26] MEDS: NICOTINE 7 MG/24 HOURS TOPICAL PATCH TD SCH (10:02)
[2022-09-26] MEDS: THIAMINE HCL 100 MG TABLET (FP) PO SCH (21:38)
[2022-09-26] MEDS: MELATONIN 5 MG TABLETS PO SCH (21:38)
[2022-09-27] MEDS: NICOTINE 7 MG/24 HOURS TOPICAL PATCH TD SCH (09:39)
[2022-09-27] MEDS: PRENATAL VITAMINS W/ FOLIC ACID TABLET (FP) PO SCH (09:39)
[2022-09-27] MEDS: MELATONIN 5 MG TABLETS PO SCH (21:23)
[2022-09-27] MEDS: THIAMINE HCL 100 MG TABLET (FP) PO SCH (21:23)
[2022-09-28] MEDS: NICOTINE 7 MG/24 HOURS TOPICAL PATCH TD SCH (09:42)
[2022-09-28] MEDS: PRENATAL VITAMINS W/ FOLIC ACID TABLET (FP) PO SCH (09:42)
[2022-09-28] MEDS: THIAMINE HCL 100 MG TABLET (FP) PO SCH (22:54)
[2022-09-28] MEDS: MELATONIN 5 MG TABLETS PO SCH (22:54)
[2022-09-29] MEDS: NICOTINE 7 MG/24 HOURS TOPICAL PATCH TD SCH (09:57)
[2022-09-29] MEDS: PRENATAL VITAMINS W/ FOLIC ACID TABLET (FP) PO SCH (09:57)
[2022-09-29] MEDS: THIAMINE HCL 100 MG TABLET (FP) PO SCH (21:57)
[2022-09-29] MEDS: MELATONIN 5 MG TABLETS PO SCH (21:57)
[2022-09-30] MEDS: PRENATAL VITAMINS W/ FOLIC ACID TABLET (FP) PO SCH (09:56)
[2022-09-30] MEDS: NICOTINE 7 MG/24 HOURS TOPICAL PATCH TD SCH (09:56)
[2022-09-30] MEDS: THIAMINE HCL 100 MG TABLET (FP) PO SCH (21:37)
[2022-09-30] MEDS: MELATONIN 5 MG TABLETS PO SCH (21:37)
[2022-10-01] MEDS: NICOTINE 7 MG/24 HOURS TOPICAL PATCH TD SCH (11:33)
[2022-10-01] MEDS: PRENATAL VITAMINS W/ FOLIC ACID TABLET (FP) PO SCH (11:33)
[2022-10-01] MEDS: MELATONIN 5 MG TABLETS PO SCH (22:28)
[2022-10-01] MEDS: THIAMINE HCL 100 MG TABLET (FP) PO SCH (22:28)
[2022-10-02] MEDS: PRENATAL VITAMINS W/ FOLIC ACID TABLET (FP) PO SCH (10:12)
[2022-10-02] MEDS: NICOTINE 7 MG/24 HOURS TOPICAL PATCH TD SCH (10:12)
[2022-10-02] MEDS: MELATONIN 5 MG TABLETS PO SCH (21:38)
[2022-10-02] MEDS: THIAMINE HCL 100 MG TABLET (FP) PO SCH (21:38)
[2022-10-03] MEDS: PRENATAL VITAMINS W/ FOLIC ACID TABLET (FP) PO SCH (09:33)
[2022-10-03] MEDS: NICOTINE 7 MG/24 HOURS TOPICAL PATCH TD SCH (09:34)
[2022-10-03] MEDS: THIAMINE HCL 100 MG TABLET (FP) PO SCH (21:37)
[2022-10-03] MEDS: MELATONIN 5 MG TABLETS PO SCH (21:37)
[2022-10-04] MEDS: PRENATAL VITAMINS W/ FOLIC ACID TABLET (FP) PO SCH (10:10)
[2022-10-04] MEDS: NICOTINE 7 MG/24 HOURS TOPICAL PATCH TD SCH (10:10)
[2022-10-04] MEDS: THIAMINE HCL 100 MG TABLET (FP) PO SCH (21:09)
[2022-10-05] MEDS: NICOTINE 7 MG/24 HOURS TOPICAL PATCH TD SCH (09:51)
[2022-10-05] MEDS: PRENATAL VITAMINS W/ FOLIC ACID TABLET (FP) PO SCH (09:51)
[2022-10-05] MEDS: THIAMINE HCL 100 MG TABLET (FP) PO SCH (21:34)
[2022-10-05] MEDS: SUVOREXANT 10 MG TABLET PO PRN (21:35)
[2022-10-06] MEDS: NICOTINE 7 MG/24 HOURS TOPICAL PATCH TD SCH (10:00)
[2022-10-06] MEDS: PRENATAL VITAMINS W/ FOLIC ACID TABLET (FP) PO SCH (10:00)
[2022-10-06] MEDS: THIAMINE HCL 100 MG TABLET (FP) PO SCH (21:35)
[2022-10-06] MEDS: SUVOREXANT 10 MG TABLET PO PRN (21:35)
[2022-10-07 07:23] VITALS: BP 122/63; PULSE 50; RESP 16; TEMP 97.3
[2022-10-07] MEDS: PRENATAL VITAMINS W/ FOLIC ACID TABLET (FP) PO SCH (09:11)
[2022-10-07] MEDS: NICOTINE 7 MG/24 HOURS TOPICAL PATCH TD SCH (09:11)
== END 2022-10-07 09:25 | disposition home or self-care (01) | DRG 772 ==
LOC: YASAS 16:21 → Y5N 21:29
PROVIDERS: ADMIT Allergy & Immunology; ATTEND Psychiatry & Neurology Pain Medicine
PROC: HZ42ZZZ Group Counseling for Substance Abuse Treatment, Cognitive-Behavioral (ICD-10-PCS; principal; 2022-09-23)
DX: F11.20 Opioid dependence, uncomplicated (principal); F14.20 Cocaine dependence, uncomplicated; F10.20 Alcohol dependence, uncomplicated; F12.20 Cannabis dependence, uncomplicated; F17.210 Nicotine dependence, cigarettes, uncomplicated; F19.282 Other psychoactive substance dependence with psychoactive substance-induced sleep disorder; F19.24 Other psychoactive substance dependence with psychoactive substance-induced mood disorder
CPT/HCPCS: 36415; 80053; 81003; 81025; 85027; 86780; 87635; 87811

== ENCOUNTER 2023-05-27 13:41 | Inpatient (IN) | payer OTHER ==
[2023-05-27 14:10] VITALS: BMI 18.8
[2023-05-27] MEDS ORDERED: guaiFENesin 600 MG TABLET.ER (FP) PO PRN (17:32)
[2023-05-27] MEDS ORDERED: LOPERAMIDE HCL 2 MG CAPSULE PO PRN (17:32)
[2023-05-27] MEDS ORDERED: IBUPROFEN 600 MG TABLET (FP) PO PRN (17:32)
[2023-05-27] MEDS ORDERED: IBUPROFEN 400 MG TABLET (FP) PO PRN (17:32)
[2023-05-27] MEDS ORDERED: NALOXONE HCL 0.4 MG/ML VIAL IM PRN (17:32)
[2023-05-27] MEDS ORDERED: NALOXONE HCL (KLOXXADO) 8 MG SPRAY NS PRN (17:32)
[2023-05-27] MEDS ORDERED: MAGNESIUM HYDROX 2400MG/30ML ORAL SUSPENSION 30 ML CUP PO PRN (17:32)
[2023-05-27] MEDS ORDERED: POLYETHYLENE GLYCOL (HEALTHYLAX) 3350 17 GM PACKET PO PRN (17:32)
[2023-05-27] MEDS ORDERED: BENZOCAINE/MENTHOL (CHLORASEPTIC ) LOZENGE MM PRN (17:32)
[2023-05-27] MEDS ORDERED: ACETAMINOPHEN 325 MG TABLET (FP) PO PRN (17:32)
[2023-05-27] MEDS ORDERED: MAG HYDROX/AL HYDROX/SIMETH 30 ML UNIT-DOSE CUP PO PRN (17:32)
[2023-05-27] MEDS ORDERED: BENZONATATE 200 MG CAPSULE PO PRN (17:32)
[2023-05-27] MEDS: MELATONIN 5 MG TABLETS PO SCH (21:56)
[2023-05-27] MEDS: THIAMINE HCL 100 MG TABLET (FP) PO SCH (21:56)
[2023-05-28] MEDS: PRENATAL VITAMINS W/ FOLIC ACID TABLET (FP) PO SCH (09:51)
[2023-05-28 10:56] LABS: CHLORIDE 105 mmol/L (98-107); SODIUM 140 mmol/L (136-145)
[2023-05-28 11:00] LABS: ALBUMIN 3.3 g/dl (3.4-5.0); ANION GAP 5 mmol/L (4-13); CALCIUM 8.6 mg/dL (8.5-10.1); CO2 30 mmol/L (21-32)
[2023-05-28 11:01] LABS: BLOOD UREA NITROGEN 16.6 mg/dL (7-18); GLUCOSE,RANDOM 116 mg/dL (74-106)
[2023-05-28 11:03] LABS: CREATININE 0.8 mg/dL (0.55-1.3); SGOT/AST 18 U/L (15-37); SGPT/ALT 21 U/L (13-61)
[2023-05-28 11:04] LABS: TOT PROT 6.7 g/dl (6.4-8.2)
[2023-05-28 11:05] LABS: BILIRUBIN,TOTAL 0.3 mg/dL (0.2-1)
[2023-05-28 11:06] LABS: ALK PHOS 85 U/L (45-117)
[2023-05-28 11:09] LABS: HEMATOCRIT 38.6 % (32.4-45.2); HEMOGLOBIN 12.8 GM/dL (10.7-15.3); MCH 31.8 pg (25.7-33.7); MCHC 33.2 g/dl (32.0-36.0); MEAN CELL VOLUME 95.6 fl (80-96); MEAN PLT VOLUME 8.5 fl (7.5-11.1); PLATELET COUNT 158 10^3/uL (134-434); RBC 4.03 M/mm3 (3.60-5.2); RDW 13.3 % (11.6-15.6); WHITE BLOOD COUNT 2.5 K/mm3 (4.0-10.0)
[2023-05-28 11:23] LABS: SYPHILIS W/ RPR CONF NON-REACTIVE (NONREACTIVE)
[2023-05-28] MEDS: hydrOXYzine PAMOATE 25 MG CAPSULE (FP) PO PRN (14:25)
[2023-05-29] MEDS ORDERED: methaDONE HCL 10 MG TABLET PO ONE (09:00)
[2023-05-29 10:53] LABS: URINE APPEARANCE CLEAR; URINE BILIRUBIN NEGATIVE (NEGATIVE); URINE COLOR YELLOW; URINE GLUCOSE (UA) NEGATIVE (NEGATIVE); URINE KETONE NEGATIVE (NEGATIVE); URINE LEUK ESTERASE NEGATIVE (NEGATIVE); URINE NITRITE NEGATIVE (NEGATIVE); URINE PROTEIN NEGATIVE (NEGATIVE); URINE UROBILINOGEN 0.2 mg/dL (0.2-1.0)
[2023-05-30] MEDS ORDERED: methaDONE HCL 10 MG TABLET PO SCH (06:00)
[2023-06-02] MEDS: BACLOFEN 10 MG TABLET (FP) PO SCH (10:34)
[2023-06-06] MEDS: SUVOREXANT 10 MG TABLET PO PRN (21:22)
[2023-06-09 07:10] VITALS: BP 136/70; PULSE 61; RESP 16; TEMP 98
== END 2023-06-09 11:00 | disposition home or self-care (01) | DRG 772 ==
LOC: YASAS 13:41 → Y5N 19:53
PROVIDERS: ADMIT Allergy & Immunology; ATTEND Psychiatry & Neurology Pain Medicine
PROC: HZ42ZZZ Group Counseling for Substance Abuse Treatment, Cognitive-Behavioral (ICD-10-PCS; principal; 2023-05-27)
DX: F11.20 Opioid dependence, uncomplicated (principal); F14.20 Cocaine dependence, uncomplicated; F10.20 Alcohol dependence, uncomplicated; F12.10 Cannabis abuse, uncomplicated; F17.210 Nicotine dependence, cigarettes, uncomplicated; Z86.19 Personal history of other infectious and parasitic diseases
CPT/HCPCS: 36415; 80053; 80307; 81003; 85027; 86780; 86803; 87522; 87635; J0475

== ENCOUNTER 2023-10-27 18:16 | Inpatient (IN) | payer OTHER ==
[2023-10-27 19:05] VITALS: BMI 19.2
[2023-10-27] MEDS ORDERED: MAG HYDROX/AL HYDROX/SIMETH 30 ML UNIT-DOSE CUP PO PRN (20:13)
[2023-10-27] MEDS ORDERED: DOCUSATE SODIUM 100 MG CAPSULE (FP) PO PRN (20:13)
[2023-10-27] MEDS ORDERED: MAGNESIUM HYDROX 2400MG/30ML ORAL SUSPENSION 30 ML CUP PO PRN (20:13)
[2023-10-27] MEDS ORDERED: NALOXONE HCL 0.4 MG/ML VIAL IM PRN (20:13)
[2023-10-27] MEDS ORDERED: NICOTINE POLACRILEX 2 MG GUM BUC PRN (20:13)
[2023-10-27] MEDS ORDERED: BISACODYL 5 MG TABLET.DR (FP) PO PRN (20:13)
[2023-10-27] MEDS ORDERED: BENZOCAINE/MENTHOL (CHLORASEPTIC ) LOZENGE MM PRN (20:13)
[2023-10-27] MEDS ORDERED: LOPERAMIDE HCL 2 MG CAPSULE PO PRN (20:13)
[2023-10-27] MEDS ORDERED: POLYETHYLENE GLYCOL (HEALTHYLAX) 3350 17 GM PACKET PO PRN (20:13)
[2023-10-27] MEDS ORDERED: guaiFENesin 600 MG TABLET.ER (FP) PO PRN (20:13)
[2023-10-27] MEDS ORDERED: NALOXONE (NARCAN) HCL 4 MG/0.1 ML SPRAY NS PRN (20:13)
[2023-10-27] MEDS ORDERED: NICOTINE POLACRILEX 2 MG LOZENGE BC PRN (20:13)
[2023-10-27] MEDS ORDERED: IBUPROFEN 400 MG TABLET (FP) PO PRN (20:13)
[2023-10-27] MEDS ORDERED: BENZONATATE 200 MG CAPSULE PO PRN (20:13)
[2023-10-27] MEDS: MELATONIN 5 MG TABLETS PO SCH (22:28)
[2023-10-27] MEDS: THIAMINE 100 MG TABLET PO SCH (22:28)
[2023-10-28] MEDS: PRENATAL VITAMINS W/ FOLIC ACID TABLET (FP) PO SCH (10:31)
[2023-10-28] MEDS: methaDONE HCL 40 MG DISPERSABLE TABLET PO SCH (10:31)
[2023-10-28 10:57] LABS: HEMATOCRIT 34.6 % (32.4-45.2); HEMOGLOBIN 12.1 GM/dL (10.7-15.3); MCH 32.6 pg (25.7-33.7); MCHC 35.1 g/dl (32.0-36.0); MEAN CELL VOLUME 92.9 fl (80-96); MEAN PLT VOLUME 8.5 fl (7.5-11.1); PLATELET COUNT 147 10^3/uL (134-434); RBC 3.72 M/mm3 (3.60-5.2); RDW 12.4 % (11.6-15.6); WHITE BLOOD COUNT 2.5 K/mm3 (4.0-10.0)
[2023-10-28 11:00] LABS: POTASSIUM 4.1 mmol/L (3.5-5.1)
[2023-10-28 11:07] LABS: ALBUMIN 3.6 g/dl (3.4-5.0); BLOOD UREA NITROGEN 19.6 mg/dL (7-18); CALCIUM 8.9 mg/dL (8.5-10.1)
[2023-10-28 11:10] LABS: CREATININE 0.6 mg/dL (0.55-1.3)
[2023-10-28 11:12] LABS: BILIRUBIN,TOTAL 0.2 mg/dL (0.2-1)
[2023-10-28] MEDS: ACETAMINOPHEN 325 MG TABLET (FP) PO PRN (22:25)
[2023-10-29 18:12] LABS: PH,URINE 5.5 (5.0-8.0); URINE APPEARANCE CLEAR; URINE BILIRUBIN NEGATIVE (NEGATIVE); URINE COLOR YELLOW; URINE GLUCOSE (UA) NEGATIVE (NEGATIVE); URINE KETONE NEGATIVE (NEGATIVE); URINE LEUK ESTERASE NEGATIVE (NEGATIVE); URINE NITRITE NEGATIVE (NEGATIVE); URINE PROTEIN NEGATIVE (NEGATIVE); URINE UROBILINOGEN 0.2 mg/dL (0.2-1.0)
[2023-10-31] MEDS: IBUPROFEN 600 MG TABLET (FP) PO PRN (21:49)
[2023-11-03 06:16] VITALS: TEMP 98
[2023-11-03] MEDS: MIRTAZAPINE 15 MG TABLET (FP) PO SCH (21:14)
[2023-11-04 07:03] VITALS: BP 140/68; PULSE 70; RESP 16
== END 2023-11-04 18:35 | disposition home or self-care (01) | DRG 772 ==
LOC: YASAS 18:16 → Y3NR 20:37 → Y5N 11-02 13:05
PROVIDERS: ADMIT Allergy & Immunology; ATTEND Psychiatry & Neurology Pain Medicine
PROC: HZ42ZZZ Group Counseling for Substance Abuse Treatment, Cognitive-Behavioral (ICD-10-PCS; principal; 2023-10-27)
DX: F14.20 Cocaine dependence, uncomplicated (principal); F11.20 Opioid dependence, uncomplicated; F12.20 Cannabis dependence, uncomplicated; G47.00 Insomnia, unspecified; Z56.0 Unemployment, unspecified
CPT/HCPCS: 36415; 80053; 80305; 81003; 81025; 85027; 86780; 87811; 93005; 93010

== ENCOUNTER 2024-05-15 11:11 | Inpatient (IN) | payer OTHER ==
[2024-05-15 12:44] VITALS: BMI 19.7
[2024-05-15] MEDS ORDERED: hydrOXYzine PAMOATE 25 MG CAPSULE (FP) PO PRN (13:10)
[2024-05-15] MEDS ORDERED: NICOTINE POLACRILEX 2 MG GUM BUC PRN (13:10)
[2024-05-15] MEDS ORDERED: MAGNESIUM HYDROX 2400MG/30ML ORAL SUSPENSION 30 ML CUP PO PRN (13:10)
[2024-05-15] MEDS ORDERED: LOPERAMIDE HCL 2 MG CAPSULE PO PRN (13:10)
[2024-05-15] MEDS ORDERED: IBUPROFEN 400 MG TABLET (FP) PO PRN (13:10)
[2024-05-15] MEDS ORDERED: P-EPHED 60MG/TRIPROLIDI 2.5MG TABLET PO PRN (13:10)
[2024-05-15] MEDS ORDERED: IBUPROFEN 600 MG TABLET (FP) PO PRN (13:10)
[2024-05-15] MEDS ORDERED: ACETAMINOPHEN 325 MG TABLET (FP) PO PRN (13:10)
[2024-05-15] MEDS ORDERED: NICOTINE POLACRILEX 2 MG LOZENGE BC PRN (13:10)
[2024-05-15] MEDS ORDERED: MAG HYDROX/AL HYDROX/SIMETH 30 ML UNIT-DOSE CUP PO PRN (13:10)
[2024-05-15] MEDS ORDERED: BENZOCAINE/MENTHOL (CHLORASEPTIC ) LOZENGE MM PRN (13:10)
[2024-05-15] MEDS ORDERED: BENZONATATE 200 MG CAPSULE PO PRN (13:10)
[2024-05-15] MEDS ORDERED: POLYETHYLENE GLYCOL (HEALTHYLAX) 3350 17 GM PACKET PO PRN (13:10)
[2024-05-15] MEDS ORDERED: guaiFENesin 600 MG TABLET.ER (FP) PO PRN (13:10)
[2024-05-15] MEDS ORDERED: NALOXONE (NARCAN) HCL 4 MG/0.1 ML SPRAY NS PRN (13:10)
[2024-05-15] MEDS: THIAMINE 100 MG TABLET PO SCH (21:14)
[2024-05-15] MEDS: MELATONIN 5 MG TABLETS PO SCH (21:14)
[2024-05-16] MEDS ORDERED: methaDONE HCL 40 MG DISPERSABLE TABLET PO SCH (06:00)
[2024-05-16] MEDS: PRENATAL VITAMINS W/ FOLIC ACID TABLET (FP) PO SCH (10:04)
[2024-05-16 11:09] LABS: URINE APPEARANCE CLEAR; URINE BILIRUBIN NEGATIVE (NEGATIVE); URINE COLOR YELLOW; URINE GLUCOSE (UA) NEGATIVE (NEGATIVE); URINE KETONE NEGATIVE (NEGATIVE); URINE LEUK ESTERASE NEGATIVE (NEGATIVE); URINE NITRITE NEGATIVE (NEGATIVE); URINE PROTEIN NEGATIVE (NEGATIVE); URINE UROBILINOGEN 0.2 mg/dL (0.2-1.0)
[2024-05-16 11:14] LABS: HEMATOCRIT 38.5 % (32.4-45.2); HEMOGLOBIN 12.8 GM/dL (10.7-15.3); MCH 31.6 pg (25.7-33.7); MCHC 33.2 g/dl (32.0-36.0); MEAN CELL VOLUME 95.3 fl (80-96); MEAN PLT VOLUME 9.2 fl (7.5-11.1); PLATELET COUNT 183 10^3/uL (134-434); RBC 4.03 M/mm3 (3.60-5.2); RDW 13.2 % (11.6-15.6); WHITE BLOOD COUNT 3.5 K/mm3 (4.0-10.0)
[2024-05-16 11:17] LABS: CHLORIDE 106 mmol/L (98-107); POTASSIUM 4.4 mmol/L (3.5-5.1); SODIUM 139 mmol/L (136-145)
[2024-05-16 11:19] LABS: CALCIUM 8.8 mg/dL (8.5-10.1)
[2024-05-16 11:20] LABS: ALBUMIN 3.7 g/dl (3.4-5.0); ANION GAP 6 mmol/L (4-13); BLOOD UREA NITROGEN 24.8 mg/dL (7-18); CO2 28 mmol/L (21-32); GLUCOSE,RANDOM 77 mg/dL (74-106)
[2024-05-16 11:23] LABS: CREATININE 0.9 mg/dL (0.55-1.3); SGOT/AST 27 U/L (15-37); SGPT/ALT 23 U/L (13-61)
[2024-05-16 11:25] LABS: BILIRUBIN,TOTAL 0.3 mg/dL (0.2-1); TOT PROT 7.1 g/dl (6.4-8.2)
[2024-05-16 11:26] LABS: ALK PHOS 79 U/L (45-117)
[2024-05-16] MEDS: MIRTAZAPINE 15 MG TABLET (FP) PO SCH (21:46)
[2024-05-17] MEDS: BACLOFEN 10 MG TABLET (FP) PO SCH (11:52)
[2024-05-23 07:14] VITALS: TEMP 97.6
[2024-05-24 07:34] VITALS: BP 133/76; PULSE 54; RESP 16
== END 2024-05-24 11:15 | disposition home or self-care (01) | DRG 772 ==
LOC: YASAS 11:11 → Y5N 17:09
PROVIDERS: ADMIT Psychiatry & Neurology Pain Medicine; ATTEND Allergy & Immunology
PROC: HZ42ZZZ Group Counseling for Substance Abuse Treatment, Cognitive-Behavioral (ICD-10-PCS; principal; 2024-05-15)
DX: F11.20 Opioid dependence, uncomplicated (principal); F14.20 Cocaine dependence, uncomplicated; F12.20 Cannabis dependence, uncomplicated; F17.210 Nicotine dependence, cigarettes, uncomplicated; F41.9 Anxiety disorder, unspecified; G47.00 Insomnia, unspecified; R00.1 Bradycardia, unspecified; Z86.19 Personal history of other infectious and parasitic diseases
CPT/HCPCS: 36415; 80053; 80305; 80307; 81003; 81025; 85027; 86780; 87811; 93005; 93010; J0475